=== PATIENT | female | born 1980 | race Caucasian/White ===

== ENCOUNTER 2016-10-03 16:34 | Emergency (ER) | payer MEDICAID ==
[2016-10-03] MEDS ORDERED: cloNIDine 0.1 MG/Day Transdermal Patch TRDERM SCH (17:15)
--- NOTE | 2016-10-03 17:20 | EDM.PDOC ---
ED HPI GENERAL MEDICAL PROBLEM - General Chief Complaint: Medication Administration Stated Complaint: NEEDS MEDICATION Time Seen by Provider: 10/03/16 16:59 - History of Present Illness INITIAL COMMENTS - FREE TEXT/NARRATIVE: HISTORY AND PHYSICAL: History of present illness: The patient is a 36-year-old female who presents with issues of stomach pain that started yesterday after she did not have anymore Suboxone. The patient has been on this medication for drug rehabilitation through a physician in [place] for one to 2 years. She states she was running out and she did taper it somewhat because she was unable to get ahold of her physician at home and she starts a new job charge is concerned about that. Patient contacted her clinic physician here who recommended she come to the ER. The patient has had some nausea and has a Zofran that she is using. She has had no diarrhea and no discrete abdominal pain or chest pain. She mostly complains of diffuse body pain and because of this and the agitation she did take one [place] 10 this morning and she is regretting that decision. She said it did not make her feel any better. The patient states she is able to contact her physician back home tomorrow to get a refill called in/sent and she said she just wanted to get something to help her get through her first day at work tomorrow. Review of systems: As per history of present illness and below otherwise all systems reviewed and negative. Past medical history: As per history of present illness and as reviewed below otherwise noncontributory. Surgical history: As per history of present illness and as reviewed below otherwise noncontributory. Social history: No reported history of drug or alcohol abuse. Family history: As per history of present illness and as reviewed below otherwise noncontributory. Physical exam: General: Well-developed well-nourished thin female who is nontoxic and speaking clearly and easily in the ED. Her vital signs at triage were noted by me. She is somewhat anxious HEENT: Atraumatic, normocephalic, pupils reactive, negative for conjunctival pallor or scleral icterus, mucous membranes moist, throat clear, neck supple, nontender, trachea midline. Lungs: Clear to auscultation, breath sounds equal bilaterally, chest nontender. Heart: S1S2, regular, negative for clicks, rubs, or JVD. Abdomen: Soft, nondistended, nontender. NABS Genitourinary: Deferred. Rectal: Deferred. Extremities: Atraumatic, negative for cords or calf pain. Neurovascular unremarkable. Neuro: Awake, alert, oriented. Cranial nerves II through XII unremarkable. Cerebellum unremarkable. Motor and sensory unremarkable throughout. Exam nonfocal. Diagnostics: [] Therapeutics: Clonidine patch I discussed with the patient it would be very limited in helping her here in the ED. I can place a clonidine patch and give her a few tablets of Ativan so that she can get some rest later today and tonight so that maybe she can try to go to work tomorrow. She will be getting a refill of her Suboxone tomorrow most likely offer her. She has Zofran a ready and as she is not having diarrhea I will not give her any Bentyl. Patient states understanding of my physician and respect that and will take the Ativan and clonidine. Impression: Early withdrawal symptoms from Suboxone stable Definitive disposition and diagnosis as appropriate pending reevaluation and review of above. 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 ED EXAM, GENERAL - Physical Exam Exam: See Below (See dictation) Course - Vital Signs Last Recorded V/S: Last Vital Signs Temp 36.4 C 10/03/16 17:03 Pulse 86 10/03/16 17:03 Resp 18 10/03/16 17:03 BP 134/83 10/03/16 17:03 Pulse Ox 100 10/03/16 17:03 - Orders/Labs/Meds Orders: Active Orders 24 hr Category Date Time Status cloNIDine [Catapres-TTS 1] Med 10/03/16 17:15 Ordered 0.1 mg TRDERM Q7D Medication Orders Clonidine HCl (Catapres-Tts 1) 0.1 mg TRDERM Q7D IAN Meds: Medications Generic Name Dose Route Start Last Admin Trade Name Melinda PRN Reason Stop Dose Admin Clonidine HCl 0.1 mg 10/03/16 17:15 Catapres-Tts 1 TRDERM Q7D IAN Departure - Departure Time of Disposition: 17:19 Disposition: Home, Self-Care 01 Condition: good Clinical Impression: Withdrawal symptoms, drug or narcotic Qualifiers: Substance type: opioid Qualified Code(s): F11.23 - Opioid dependence with withdrawal Forms: ED Department Discharge Additional Instructions: The following information is given to patients seen in the emergency department who are being discharged to home. This information is to outline your options for follow-up care. We provide all patients seen in our emergency department with a follow-up referral. The need for follow-up, as well as the timing and circumstances, are variable depending upon the specifics of your emergency department visit. If you don't have a primary care physician on staff, we will provide you with a referral. We always advise you to contact your personal physician following an emergency department visit to inform them of the circumstance of the visit and for follow-up with them and/or the need for any referrals to a consulting specialist. The emergency department will also refer you to a specialist when appropriate. This referral assures that you have the opportunity for followup care with a specialist. All of these measure are taken in an effort to provide you with optimal care, which includes your followup. Under all circumstances we always encourage you to contact your private physician who remains a resource for coordinating your care. When calling for followup care, please make the office aware that this follow-up is from your recent emergency room visit. If for any reason you are refused follow-up, please contact the [facility] emergency department at and ask to speak to the emergency department charge nurse. [facility]- [facility] [address] [place] [address] Please call your physician in [place] tomorrow to get a refill of your Suboxone. Please use the Ativan prescribed here today as needed ; if you feel lightheaded or dizzy later today remove the clonidine patch that has been placed in the ER. Please followup in our clinic as directed and needed and return to the ER as needed and discussed - My Orders Last 24 Hours: My Active Orders 10/03/16 17:15 cloNIDine [Catapres-TTS 1] 0.1 mg TRDERM Q7D - Assessment/Plan Last 24 Hours: My Active Orders 10/03/16 17:15 cloNIDine [Catapres-TTS 1] 0.1 mg TRDERM Q7D
[2016-10-03 17:46] VITALS: BP 104/63
== END 2016-10-03 17:50 | disposition home or self-care (01) ==
LOC: MW.ED 16:34
DX: F11.23 Opioid dependence with withdrawal (principal); Z88.2 Allergy status to sulfonamides; Z88.8 Allergy status to other drugs, medicaments and biological substances
CPT/HCPCS: 99282; A9270; 99283

== ENCOUNTER → 2016-10-11 | Outpatient (CLI) | payer MEDICAID | LOC: MW.CHRC 16:04 | PROVIDERS: ATTEND Family Medicine | DX: Z02.83 Encounter for blood-alcohol and blood-drug test (principal) | CPT/HCPCS: 80305 ==

== ENCOUNTER 2017-02-24 13:42 | Emergency (ER) | payer MEDICAID ==
--- NOTE | 2017-02-24 13:53 | EDM.PDOC ---
ED HPI GENERAL MEDICAL PROBLEM - General Chief Complaint: Abdominal Pain Stated Complaint: UNK Time Seen by Provider: 02/24/17 13:44 Source of Information: Reports: Patient History Limitations: Reports: No Limitations - History of Present Illness INITIAL COMMENTS - FREE TEXT/NARRATIVE: History of present illness: []Patient was sent over by Dr. Camp for evaluation for possible appendicitis. She was seen in her clinic 2 days ago where she was treated for a UTI and put on antibiotics. The next day patient complained of a lump in her right lower quadrant with increasing pain. Dr. Camp ordered a CT scan of abdomen and pelvis yesterday and the result were given this morning. There is question of enlargement of the appendix and possible appendicitis. Review of systems: As per history of present illness and below otherwise all systems reviewed and negative. Past medical history: As per history of present illness and as reviewed below otherwise noncontributory. Surgical history: As per history of present illness and as reviewed below otherwise noncontributory. Social history: No reported history of drug or alcohol abuse. Family history: As per history of present illness and as reviewed below otherwise noncontributory. Physical exam: General: Well developed, cachectic in NAD HEENT: Atraumatic, normocephalic, pupils reactive, negative for conjunctival pallor or scleral icterus, mucous membranes moist, throat clear, neck supple, nontender, trachea midline. Lungs: Clear to auscultation, breath sounds equal bilaterally, chest nontender. Heart: S1S2, regular, negative for clicks, rubs, or JVD. Abdomen: Soft, nondistended, mild right lower quadrant tenderness no rebound or guarding. Negative for masses or hepatosplenomegaly. Negative for costovertebral tenderness. Pelvis: Stable nontender. Genitourinary: Deferred. Rectal: Deferred. Extremities: Atraumatic, negative for cords or calf pain. Neurovascular unremarkable. Neuro: Awake, alert, oriented. Cranial nerves II through XII unremarkable. Cerebellum unremarkable. Motor and sensory unremarkable throughout. Exam nonfocal. Diagnostics: []Lab work was done patient has a normal white count, UA chemistries. Therapeutics: []She was given IV fluids. General surgery was consulted and did not feel like this was acute appendicitis given the time of her pain, and results of labs and CT. Impression: []Right lower quadrant pain Plan: []Follow-up PMD as needed. Definitive disposition and diagnosis as appropriate pending reevaluation and review of above. no pain Pain Score (Numeric/FACES): 0 - Related Data Allergies Allergy/AdvReac Type Severity Reaction Status Date / Time Sulfa (Sulfonamide Allergy unknown Verified 02/24/17 13:49 Antibiotics) metoclopramide [From Reglan] AdvReac Agitation Verified 02/24/17 13:49 Home Meds: Home Meds Buprenorphine HCl/Naloxone HCl [Suboxone 4 mg-1 mg Sl Film] 1 tab PO TID [History] Cyanocobalamin (Vitamin B-12) [Vitamin B-12] 500 mcg PO DAILY 02/24/17 [History] Levofloxacin 500 mg PO DAILY 02/24/17 [History] Methylphenidate HCl [Methylphenidate HCl Cd] 20 mg PO BID 02/24/17 [History] Mirtazapine 15 mg PO BEDTIME 02/24/17 [History] Naproxen 500 mg PO Q12H 02/24/17 [History] Ondansetron [IJD: Ondansetron ODT] 4 mg PO Q4H PRN 02/24/17 [History] busPIRone [Buspar] 30 mg PO BID 02/24/17 [History] Past Medical History - Past Health History Medical/Surgical History: Denies Medical/Surgical History HEENT History: Reports: None Cardiovascular History: Reports: None Respiratory History: Reports: None Genitourinary History: Reports: Renal Calculus 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 - Infectious Disease History Infectious Disease History: Reports: Chicken Pox Social & Family History - Family History Family Medical History: Noncontributory - Tobacco Use Smoking Status *Q: Never Smoker - Recreational Drug Use Recreational Drug Use: Yes Drug Use in Last 12 Months: No Recreational Drug Type: Reports: Opium ED ROS GENERAL - Review of Systems Review Of Systems: See Below ED EXAM, GI/ABD - Physical Exam Exam: See Below (See history of present illness) Course - Vital Signs Last Recorded V/S: Last Vital Signs Temp 36.5 C 02/24/17 13:50 Pulse 102 H 02/24/17 13:50 Resp 18 02/24/17 13:50 BP 122/77 02/24/17 13:50 Pulse Ox - Orders/Labs/Meds Orders: Active Orders 24 hr Category Date Time Status Saline Lock Insert [OM.PC] Stat Oth 02/24/17 13:59 Ordered Labs: Laboratory Tests 02/24/17 02/24/17 02/24/17 Range/Units 13:50 13:50 13:58 WBC 3.76 L (4.0-11.0) K/uL RBC 4.67 (4.30-5.90) M/uL Hgb 13.4 (12.0-16.0) g/dL Hct 39.3 (36.0-46.0) % MCV 84.2 (80.0-98.0) fL MCH 28.7 (27.0-32.0) pg MCHC 34.1 (31.0-37.0) g/dL RDW Std Deviation 38.5 (28.0-62.0) fl RDW Coeff of Liss 13 (11.0-15.0) % Plt Count 188 (150-400) K/uL MPV 10.90 (7.40-12.00) fL Neut % (Auto) 47.2 L (48.0-80.0) % Lymph % (Auto) 41.2 H (16.0-40.0) % [place] % (Auto) 8.2 (0.0-15.0) % Eos % (Auto) 2.9 (0.0-7.0) % Baso % (Auto) 0.5 (0.0-1.5) % Neut # (Auto) 1.8 (1.4-5.7) K/uL Lymph # (Auto) 1.6 (0.6-2.4) K/uL [place] # (Auto) 0.3 (0.0-0.8) K/uL Eos # (Auto) 0.1 (0.0-0.7) K/uL Baso # (Auto) 0.0 (0.0-0.1) K/uL Nucleated RBC % 0.0 /100WBC Nucleated RBCs # 0 K/uL Sodium 140 (136-146) mmol/L Potassium 3.4 L (3.5-5.1) mmol/L Chloride 106 (98-110) mmol/L Carbon Dioxide 27 (21-31) mmol/L BUN 11 (6.0-23.0) mg/dL Creatinine 0.8 (0.6-1.5) mg/dL Est Cr Clr Drug Dosing 62.30 mL/min Estimated GFR (MDRD) > 60.0 ml/min Glucose 93 (60-110) mg/dL Calcium 8.6 L (8.8-10.8) mg/dL Total Bilirubin 0.8 (0.1-1.5) mg/dL AST 23 (5-40) IU/L ALT 9 (8-54) IU/L Alkaline Phosphatase 50 (40-150) Total Protein 7.7 (6.0-8.0) g/dL Albumin 4.1 (3.5-5.0) g/dL Globulin 3.6 H (2.0-3.5) g/dL Albumin/Globulin Ratio 1.1 L (1.3-2.8) Lipase 29 (7-80) U/L Urine Color Urine Appearance Urine pH (5.0-8.0) Ur Specific [place] (1.001-1.035) Urine Protein (NEGATIVE) mg/dL Urine Glucose (UA) (NEGATIVE) mg/dL Urine Ketones (NEGATIVE) mg/dL Urine Occult Blood (NEGATIVE) Urine Nitrite (NEGATIVE) Urine Bilirubin (NEGATIVE) Urine Urobilinogen (<2.0) EU/dL Ur Leukocyte Esterase (NEGATIVE) Urine RBC (0-2/HPF) Urine WBC (0-5/HPF) Ur Epithelial Cells (NONE-FEW) Urine Bacteria (NEGATIVE) Urine Mucus (NONE-MOD) Urine HCG, Qual NEGATIVE (NEGATIVE) Urine Opiates Screen (NEGATIVE) Ur Oxycodone Screen (NEGATIVE) Urine Methadone Screen (NEGATIVE) Ur Barbiturates Screen (NEGATIVE) Ur Phencyclidine Scrn (NEGATIVE) Ur Amphetamine Screen (NEGATIVE) U Methamphetamines Scrn (NEGATIVE) U Benzodiazepines Scrn (NEGATIVE) U Cocaine Metab Screen (NEGATIVE) U Marijuana (THC) Screen (NEGATIVE) 02/24/17 02/24/17 Range/Units 13:58 13:58 WBC (4.0-11.0) K/uL RBC (4.30-5.90) M/uL Hgb (12.0-16.0) g/dL Hct (36.0-46.0) % MCV (80.0-98.0) fL MCH (27.0-32.0) pg MCHC (31.0-37.0) g/dL RDW Std Deviation (28.0-62.0) fl RDW Coeff of Liss (11.0-15.0) % Plt Count (150-400) K/uL MPV (7.40-12.00) fL Neut % (Auto) (48.0-80.0) % Lymph % (Auto) (16.0-40.0) % [place] % (Auto) (0.0-15.0) % Eos % (Auto) (0.0-7.0) % Baso % (Auto) (0.0-1.5) % Neut # (Auto) (1.4-5.7) K/uL Lymph # (Auto) (0.6-2.4) K/uL [place] # (Auto) (0.0-0.8) K/uL Eos # (Auto) (0.0-0.7) K/uL Baso # (Auto) (0.0-0.1) K/uL Nucleated RBC % /100WBC Nucleated RBCs # K/uL Sodium (136-146) mmol/L Potassium (3.5-5.1) mmol/L Chloride (98-110) mmol/L Carbon Dioxide (21-31) mmol/L BUN (6.0-23.0) mg/dL Creatinine (0.6-1.5) mg/dL Est Cr Clr Drug Dosing mL/min Estimated GFR (MDRD) ml/min Glucose (60-110) mg/dL Calcium (8.8-10.8) mg/dL Total Bilirubin (0.1-1.5) mg/dL AST (5-40) IU/L ALT (8-54) IU/L Alkaline Phosphatase (40-150) Total Protein (6.0-8.0) g/dL Albumin (3.5-5.0) g/dL Globulin (2.0-3.5) g/dL Albumin/Globulin Ratio (1.3-2.8) Lipase (7-80) U/L Urine Color YELLOW Urine Appearance SLT CLOUDY Urine pH 6.0 (5.0-8.0) Ur Specific [place] >= 1.030 (1.001-1.035) Urine Protein NEGATIVE (NEGATIVE) mg/dL Urine Glucose (UA) NEGATIVE (NEGATIVE) mg/dL Urine Ketones NEGATIVE (NEGATIVE) mg/dL Urine Occult Blood TRACE-LYSED (NEGATIVE) Urine Nitrite NEGATIVE (NEGATIVE) Urine Bilirubin NEGATIVE (NEGATIVE) Urine Urobilinogen 1.0 (<2.0) EU/dL Ur Leukocyte Esterase NEGATIVE (NEGATIVE) Urine RBC 0-1 (0-2/HPF) Urine WBC 2-3 (0-5/HPF) Ur Epithelial Cells MANY (NONE-FEW) Urine Bacteria FEW (NEGATIVE) Urine Mucus HEAVY (NONE-MOD) Urine HCG, Qual (NEGATIVE) Urine Opiates Screen NEGATIVE (NEGATIVE) Ur Oxycodone Screen NEGATIVE (NEGATIVE) Urine Methadone Screen NEGATIVE (NEGATIVE) Ur Barbiturates Screen NEGATIVE (NEGATIVE) Ur Phencyclidine Scrn NEGATIVE (NEGATIVE) Ur Amphetamine Screen NEGATIVE (NEGATIVE) U Methamphetamines Scrn NEGATIVE (NEGATIVE) U Benzodiazepines Scrn NEGATIVE (NEGATIVE) U Cocaine Metab Screen NEGATIVE (NEGATIVE) U Marijuana (THC) Screen NEGATIVE (NEGATIVE) Meds: Medications Discontinued Medications Generic Name Dose Route Start Last Admin Trade Name Freq PRN Reason Stop Dose Admin Sodium Chloride 1,000 mls @ 999 mls/hr 02/24/17 13:59 02/24/17 14:06 Normal Saline IV 02/24/17 14:59 999 mls/hr .Bolus ONE Administration Departure - Departure Time of Disposition: 15:07 Disposition: Home, Self-Care 01 Condition: Good Clinical Impression: Right lower quadrant abdominal pain - Discharge Information Referrals: Noelle Camp MD [Primary Care Provider] - Forms: ED Department Discharge Additional Instructions: The following information is given to patients seen in the emergency department who are being discharged to home. This information is to outline your options for follow-up care. We provide all patients seen in our emergency department with a follow-up referral. The need for follow-up, as well as the timing and circumstances, are variable depending upon the specifics of your emergency department visit. If you don't have a primary care physician on staff, we will provide you with a referral. We always advise you to contact your personal physician following an emergency department visit to inform them of the circumstance of the visit and for follow-up with them and/or the need for any referrals to a consulting specialist. The emergency department will also refer you to a specialist when appropriate. This referral assures that you have the opportunity for follow-up care with a specialist. All of these measure are taken in an effort to provide you with optimal care, which includes your follow-up. Under all circumstances we always encourage you to contact your private physician who remains a resource for coordinating your care. When calling for follow-up care, please make the office aware that this follow-up is from your recent emergency room visit. If for any reason you are refused follow-up, please contact the [facility] Emergency Department at and asked to speak to the emergency department charge nurse. Tylenol or Motrin for pain warm packs to abdomen follow-up with PMD or QUICK MIXER OPERATOR. [facility] [address] [place] [id number] [facility] - [facility] [address] [place] [id number] - My Orders Last 24 Hours: My Active Orders 02/24/17 13:59 Saline Lock Insert [OM.PC] Stat - Assessment/Plan Last 24 Hours: My Active Orders 02/24/17 13:59 Saline Lock Insert [OM.PC] Stat
[2017-02-24] MEDS ORDERED: Sodium Chloride 0.9% 1,000 ML IV ONE (13:59)
[2017-02-24 14:21] LABS: CHLORIDE,CL 106 mmol/L (98-110); SODIUM,NA 140 mmol/L (136-146)
[2017-02-24 15:40] VITALS: BP 120/67
== END 2017-02-24 15:39 | disposition home or self-care (01) ==
LOC: MW.ED 13:42
DX: R10.31 Right lower quadrant pain (principal); Z88.2 Allergy status to sulfonamides; Z88.8 Allergy status to other drugs, medicaments and biological substances; Z79.899 Other long term (current) drug therapy; Z87.442 Personal history of urinary calculi
CPT/HCPCS: 36415; 80053; 80305; 81001; 81025; 83690; 85025; 96360; 99284; J7040; 99282

== ENCOUNTER 2017-12-28 07:22 | Day surgery (SDC) | payer BC ==
[~2017-12-28 07:22] MED LIST: Lactated Ringers 1,000 ML IV SCH; Lidocaine 2% 5 ML SDV ONE; Midazolam 1 MG/ML 2 ML SDV ONE; Propofol 200 MG/20 ML SDV ONE; Sodium Chloride 0.9% 10 ML Syringe FLUSH PRN; Sodium Chloride 0.9% 2.5 ML Syringe FLUSH PRN; fentaNYL 100 MCG/2 ML SDV ONE
[2017-12-28] MEDS ORDERED: Iopamidol 408 MG/ML 50 ML SDV ONE (07:41)
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
[2017-12-28] MEDS ORDERED: Propofol 200 MG/20 ML SDV ONE (08:10)
[2017-12-28] MEDS ORDERED: Ondansetron 4 MG/2 ML SDV ONE (09:02)
[2017-12-28] MEDS ORDERED: Glycopyrrolate 0.2 MG/ML SDV ONE (09:02)
[2017-12-28] MEDS ORDERED: Rocuronium 10 MG/ML 10 ML Syringe ONE (09:02)
[2017-12-28] MEDS ORDERED: Neostigmine Methylsulfate 1 MG/ML 5 ML Syringe ONE (09:02)
[2017-12-28] MEDS ORDERED: Sugammadex Sodium 200 MG/2 ML VIAL ONE (09:35)
[2017-12-28] MEDS ORDERED: fentaNYL 100 MCG/2 ML SDV IVPUSH PRN (10:08)
--- NOTE | 2017-12-28 10:43 | PCM.POSTAN ---
POST ANESTHESIA ASSESSMENT - MENTAL STATUS Mental Status: Alert, Oriented - RESPIRATORY Respiratory Status: Respiratory Rate WNL - CARDIOVASCULAR CV Status: Pulse Rate WNL, Blood Pressure Stable - GASTROINTESTINAL GI Status: No Symptoms - PAIN Pain Score: 0 - POST OP HYDRATION Hydration Status: Adequate & Stable - OBSERVATIONS Free Text/Narrative:: no anesthesia problems
--- NOTE | 2017-12-28 11:16 | OR ---
SURGEON: Cynthia Bolton M.D. DATE OF PROCEDURE: 12/28/2017 PREOPERATIVE DIAGNOSIS: Right calyceal stone, 8 mm. POSTOPERATIVE DIAGNOSIS: Right calyceal stone, 8 mm. OPERATION: ESWL. DESCRIPTION OF THE PROCEDURE: The patient was given general anesthesia. The position of the patient was adjusted, so the stone could be treated and eventually received a total of 1500 shocks. Monitoring the progress, position of the stone, it essentially completely disappeared. With that done, the procedure was terminated and the patient was sent back to recovery room in good condition. NAE / RAH /[id number]
[2017-12-28 12:16] VITALS: BP 112/62
== END 2017-12-28 12:55 | disposition home or self-care (01) ==
LOC: MW.SDS 07:22
PROVIDERS: ATTEND Urology
DX: N20.0 Calculus of kidney (principal); E03.9 Hypothyroidism, unspecified; M35.00 Sjogren syndrome, unspecified; F41.9 Anxiety disorder, unspecified; F17.200 Nicotine dependence, unspecified, uncomplicated; Z79.899 Other long term (current) drug therapy; Z88.2 Allergy status to sulfonamides; Z88.8 Allergy status to other drugs, medicaments and biological substances; Z91.018 Allergy to other foods; Z98.51 Tubal ligation status; Z98.890 Other specified postprocedural states
CPT/HCPCS: 50590; 81025; J2250; J2405; J3010; J3490; J7120; J2704; Q9966

== ENCOUNTER 2017-12-29 18:34 | Emergency (ER) | payer BC ==
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
[2017-12-29 19:23] VITALS: BP 105/74
== END 2017-12-29 19:23 | disposition home or self-care (01) ==
LOC: MW.ED 18:34
DX: L25.8 Unspecified contact dermatitis due to other agents (principal); E03.9 Hypothyroidism, unspecified; F17.210 Nicotine dependence, cigarettes, uncomplicated; Z88.2 Allergy status to sulfonamides; Z91.018 Allergy to other foods; Z88.8 Allergy status to other drugs, medicaments and biological substances; Z79.899 Other long term (current) drug therapy
CPT/HCPCS: 99282

== ENCOUNTER 2018-02-15 22:58 | Emergency (ER) | payer BC ==
[2018-02-15 23:27] VITALS: BP 117/84
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
== END 2018-02-16 00:10 | disposition home or self-care (01) ==
LOC: MW.ED 22:58
DX: Z13.9 Encounter for screening, unspecified (principal); Z88.2 Allergy status to sulfonamides; Z91.018 Allergy to other foods; Z87.442 Personal history of urinary calculi
CPT/HCPCS: 99282; 99284

== ENCOUNTER 2018-09-30 21:51 | Emergency (ER) | payer BC ==
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
[2018-09-30 23:03] VITALS: BP 116/71
== END 2018-09-30 22:30 | disposition home or self-care (01) ==
LOC: MW.ED 21:51
DX: K04.7 Periapical abscess without sinus (principal); E03.9 Hypothyroidism, unspecified; F41.9 Anxiety disorder, unspecified; Z88.2 Allergy status to sulfonamides; Z91.010 Allergy to peanuts; Z79.899 Other long term (current) drug therapy
CPT/HCPCS: 99283

== ENCOUNTER 2018-12-27 00:09 | Emergency (ER) | payer SELFPAY ==
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
[2018-12-27 00:59] LABS: CHLORIDE,CL 103 mmol/L (98-107); SODIUM,NA 137 mmol/L (136-145)
[2018-12-27] MEDS ORDERED: Ketorolac 30 MG/ML SDV IVPUSH ONE (01:10)
[2018-12-27] MEDS ORDERED: Ondansetron 4 MG/2 ML SDV IVPUSH ONE (01:10)
[2018-12-27] MEDS ORDERED: Sodium Chloride 0.9% 1,000 ML IV ONE (01:44)
[2018-12-27] MEDS ORDERED: Iopamidol 755 MG/ML 500 ML Multipack Bottle IVPUSH STA (01:49)
--- NOTE | 2018-12-27 02:15 | CT ---
INDICATION: Abdominal pain, especially after eating TECHNIQUE: CT abdomen and pelvis acquired with 90 cc Isovue 370 IV contrast. COMPARISON: None FINDINGS: Lower chest: Unremarkable. Liver: Unremarkable. Spleen: Unremarkable. Pancreas: Unremarkable. Gallbladder and bile ducts: Unremarkable. Adrenal glands: Unremarkable. Kidneys: Minimal scarring on the right kidney. Two nonobstructive stones in the right kidney, the largest measuring 3 mm in diameter. GI tract: Large amount of feces in the colon. There is some fluid within the ascending colon. Appendix is not seen. Vascular structures: Unremarkable. Lymph nodes: Unremarkable. Miscellaneous: Unremarkable. No free air or significant free fluid. Pelvic Organs: Simple free fluid in the pelvis may be physiologic in nature. Bones: Unremarkable for age. IMPRESSION: Fluid in the ascending colon consistent with diarrheal illness. Under the colon has a moderate amount of feces. Two nonobstructive stones in the right kidney. Please note that all CT scans at this facility use dose modulation, iterative reconstruction, and/or weight-based dosing when appropriate to reduce radiation dose to as low as reasonably achievable. Dictated by Faiza Ann MD @ Dec 27 2018 2:07AM Signed by Dr. Faiza Ann @ Dec 27 2018 2:13AM
--- NOTE | 2018-12-27 03:57 | US ---
INDICATION: Abdominal pain and nausea TECHNIQUE: Ultrasound abdomen limited. Sonographic images of the right upper quadrant were obtained using quintero-scale and color Doppler images. COMPARISON: CT from same date FINDINGS: Liver: Normal in size and echotexture. No masses. No intrahepatic biliary dilatation. Gallbladder: No stones or sludge. Normal wall thickness. No pericholecystic fluid. Sonographic Crawley`s sign is positive. Common bile duct: 5 mm. Pancreas: Normal. Right kidney: 9.1 cm in length normal echotexture and cortex. No masses, stones, or hydronephrosis. Vasculature: Proximal abdominal aorta and IVC are normal. IMPRESSION: Although sonographic Crawley`s sign is positive. There is no evidence for acute cholecystitis or cholelithiasis. No acute process identified. Dictated by Faiza Ann MD @ Dec 27 2018 3:54AM Signed by Dr. Faiza Ann @ Dec 27 2018 3:54AM
[2018-12-27 04:25] VITALS: BP 100/52
== END 2018-12-27 04:25 | disposition home or self-care (01) ==
LOC: MW.ED 00:09
DX: R10.11 Right upper quadrant pain (principal); M06.9 Rheumatoid arthritis, unspecified; E03.9 Hypothyroidism, unspecified; Z88.2 Allergy status to sulfonamides; Z91.018 Allergy to other foods; Z79.899 Other long term (current) drug therapy; Z98.51 Tubal ligation status
CPT/HCPCS: 36415; 74177; 76705; 80053; 81001; 81025; 85025; 96361; 96374; 96375; 99284; J1885; J2405; J7040; Q9967; 99283

== ENCOUNTER 2020-01-01 08:19 | Emergency (ER) | payer OTHER ==
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
[2020-01-01] MEDS ORDERED: Bupivacaine 0.5% 10 ML SDV INJECT ONE (08:39)
[2020-01-01 09:00] VITALS: BP 122/72; PULSE 62
== END 2020-01-01 09:00 | disposition home or self-care (01) ==
LOC: MW.ED 08:19
DX: K02.9 Dental caries, unspecified (principal); K03.81 Cracked tooth; E03.9 Hypothyroidism, unspecified; F41.9 Anxiety disorder, unspecified; F98.8 Other specified behavioral and emotional disorders with onset usually occurring in childhood and adolescence; Z88.2 Allergy status to sulfonamides; Z91.018 Allergy to other foods; Z88.8 Allergy status to other drugs, medicaments and biological substances; Z79.899 Other long term (current) drug therapy; Z87.442 Personal history of urinary calculi
CPT/HCPCS: 64400; 99282; J3490

== ENCOUNTER 2020-01-18 00:24 | Emergency (ER) | payer OTHER ==
[2020-01-18] MEDS ORDERED: Bupivacaine 0.5% 10 ML SDV INJECT ONE (01:14)
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
[2020-01-18 02:35] VITALS: BP 128/74; PULSE 80
== END 2020-01-18 02:31 | disposition home or self-care (01) ==
LOC: MW.ED 00:24
DX: K08.89 Other specified disorders of teeth and supporting structures (principal); K00.7 Teething syndrome; K03.81 Cracked tooth; F41.9 Anxiety disorder, unspecified; E03.9 Hypothyroidism, unspecified; Z87.891 Personal history of nicotine dependence; Z88.0 Allergy status to penicillin; Z88.2 Allergy status to sulfonamides; Z88.8 Allergy status to other drugs, medicaments and biological substances; Z91.018 Allergy to other foods; Z79.899 Other long term (current) drug therapy
CPT/HCPCS: 64400; 99282; J3490